=== PATIENT | male | born 1980 | race Caucasian/White ===

== ENCOUNTER 2019-06-02 08:01 | Emergency (ER) | payer OTHER ==
[2019-06-02 08:06] VITALS: BP 135/94
--- NOTE | 2019-06-02 08:25 | ER Document Report ---
HPI - HPI Time Seen by Provider: 06/02/19 08:25 Pain Level: 5 Notes: 38-year-old male presents to the ED for evaluation of right hand pain after he accidentally shut the garage door on his fingers approximately 2 hours ago due to being in a hurry to get to work. Denies any numbness or tingling to fingers or hand. Has not tried any [id number] pain medication. Pain is worse with movement, better at rest. Has not tried any icing or heat. Denies any other area of injury. Denies any head trauma or change in level consciousness. Pain is 8 out of 10, throbbing sharp and constant. Denies fevers, chills, chest pain,palpitations, shortness of breath, dyspnea, nausea, vomiting, diarrhea, abdominal pain,LH, dizziness, syncope, headaches, wheezing,neck pain, weakness, numbness or tingling in bilateral upper or lower extremities equally, muscle paralysis, weakness in bilateral upper or lower extremities equally or rash. - REPRODUCTIVE Reproductive: DENIES: : Past Medical History - General Information source: Patient - Social History Smoking Status: Never Smoker Chew tobacco use (# tins/day): No Frequency of alcohol use: Occasional Drug Abuse: None Family History: Reviewed & Not Pertinent Patient has suicidal ideation: No Patient has homicidal ideation: No Vertical Provider Document - CONSTITUTIONAL Agree With Documented VS: Yes Exam Limitations: No Limitations General Appearance: WD/WN Notes: PHYSICAL EXAMINATION:reviewed vital signs by RN GENERAL: Well-appearing, well-nourished and in no acute distress. HEAD: Atraumatic, normocephalic. EYES: Pupils equal round and reactive to light, extraocular movements intact, sclera anicteric, conjunctiva are normal. ENT: Nares patent, oropharynx clear without exudates. Moist mucous membranes. NECK: Normal range of motion, supple without lymphadenopathy LUNGS: Breath sounds clear to auscultation bilaterally and equal. No wheezes rales or rhonchi. HEART: Regular rate and rhythm without murmurs ABDOMEN: Soft, nontender, nondistended abdomen. No guarding, no rebound. No masses appreciated. Musculoskeletal: Normal range of motion, no pitting or edema. No cyanosis. Noted pain with flexion, extension, abduction, adduction right 2nd-4th fingers and MCJ and PIP. Full motor and sensory function in ARAM. 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 Negative snuffbox tenderness noted on . Ulnar and radial pulses + 2 BUE equally. DTRs +2 in bilateral upper extremities equally. No deformity noted of hand or wrist bilaterally. Normal flexion, extension, ulnar/radial deviation. Negative kanavels sign. No open wounds or drainage from wrist. No vascular compromise. full motor and sensory function with medial, radial and ulnar nerves bilaterally and equally. NEUROLOGICAL: Cranial nerves grossly intact. Normal speech, normal gait. Normal sensory, motor exams PSYCH: Normal mood, normal affect. SKIN: Warm, Dry, normal turgor, no rashes or lesions noted. - INFECTION CONTROL TRAVEL OUTSIDE OF THE [place] IN LAST 30 DAYS: No Course - Re-evaluation Re-evalutation: 06/02/19 09:08 Afebrile vital stable no distress. Nurse's notes reviewed. Patient given 5 mg - 325 mg of Mcintosh for pain that is 8 out of 10, throbbing. Patient given ice pack. X-ray was negative for any acute fracture per radiology, dislocation or bone lesion. Patient will be placed in a right cock-up splint. Consent by patient given to place right cockup splint,. cms intact, sensory motor function intact in bilateral upper extremities prior to splint application fiberglass splint placed without incident. cms intact 20 minutes after splint application. Splint is in good alignment. Bilateral upper extremities with motor and sensory function intact 20 minutes after application. Pt stated that splint felt comfortable. Advised patient to follow-up with networking specialist for further evaluation, to alternate between Tylenol and meloxicam for pain control. After performing a Medical Screening Examination, I estimate there is LOW risk for OPEN FRACTURE, COMPARTMENT SYNDROME, DEEP VENOUS THROMBOSIS, ACUTE TENDON RUPTURE, or NEUROVASCULAR INJURY thus I consider the discharge disposition reasonable. I have reevaluated this patient multiple times and no significant life threatening changes are noted. The patient and I have discussed the diagnosis and risks, and we agree with discharging home to closely follow-up with their primary doctor or the referral orthopedist with the understanding that symptoms and presentations can change. We also discussed returning to the Emergency Department immediately if new or worsening symptoms occur. We have discussed the symptoms which are most concerning (e.g., changing or worsening pain, numbness, weakness) that necessitate immediate return 11/14/19 09:18 - Vital Signs Vital signs: Temp Pulse Resp BP Pulse Ox 97.1 F 93 22 H 135/94 H 100 06/02/19 08:04 06/02/19 08:04 06/02/19 08:04 06/02/19 08:04 06/02/19 08:04 Discharge - Discharge Clinical Impression: Right hand pain, Sprain of right hand Condition: Stable Disposition: HOME, SELF-CARE Instructions: Ice & Elevation ([facility]), Splint Precautions ([facility]), Sprain ([facility]) Additional Instructions: You do not have evidence of a fracture on today's xrays. Your pain is likely to do soft tissue swelling and inflammation. This can last up to 6 weeks before completely resolving. You should continue to apply ice to the area regularly, keep the affected area elevated, and take meloxicam daily as needed for pain and Tylenol every 4-6hours as needed as well.the splint is placed to help immobilization of you hand. You can remove this when showering or using the bathroom. Keep on if you start to feel pain. If you are still feeling extreme pain in 5 days, I would recommend having your hand re-x-rayed again to look for a possible occult fracture due to there being soft tissue swelling. Please follow-up with your primary care provider and networking specialist that was referred today as needed. A work note has been given. Please return if you have worsening pain, weakness, numbness, notice increasing redness or swelling to the area, develop a fever, or have any other symptoms that are concerning to you. Return immediately for any new or worsening symptoms. Follow up with primary care provider, call tomorrow to make followup appointment. Prescriptions: Meloxicam [Mobic] 7.5 mg PO DAILY #7 tablet Forms: Return to Work Referrals: JETT MORRIS JR, DO [ACTIVE PROVISIONAL STAFF] - Follow up as needed JODY MC MD [COMMUNITY BASED STAFF] - Follow up as needed
--- NOTE | 2019-06-02 08:42 | RADIOLOGY REPORT (SQ) ---
EXAM DESCRIPTION: HAND RIGHT 3 VIEWS COMPLETED DATE/TIME: 06/02/2019 8:34 am REASON FOR STUDY: Crush injury COMPARISON: None. EXAM PARAMETERS: NUMBER OF VIEWS: Three views. TECHNIQUE: AP, lateral and oblique radiographic images acquired of the right hand. LIMITATIONS: None. FINDINGS: MINERALIZATION: Normal. BONES: No acute fracture or dislocation. No worrisome bone lesions. JOINTS: No effusions. SOFT TISSUES: No soft tissue swelling. No foreign body. OTHER: No other significant finding. IMPRESSION: NEGATIVE STUDY OF THE RIGHT HAND. NO RADIOGRAPHIC EVIDENCE OF ACUTE INJURY. TECHNICAL DOCUMENTATION: JOB ID: [id number] [employer]- All Rights Reserved Reading location - IP/workstation name: [email or web address]
[2019-06-02] MEDS ORDERED: HYDROCODONE/ACETAMINOPHEN 5-325 MG TABLET PO ONE (08:56)
== END 2019-06-02 09:28 | disposition home or self-care (01) ==
LOC: ER 08:01
DX: S63.91XA Sprain of unspecified part of right wrist and hand, initial encounter (principal); W23.0XXA Caught, crushed, jammed, or pinched between moving objects, initial encounter; Y92.009 Unspecified place in unspecified non-institutional (private) residence as the place of occurrence of the external cause
CPT/HCPCS: 73130; L3908